=== PATIENT | female | born 1950 | race Caucasian/White ===

== ENCOUNTER → 2024-09-23 | Outpatient (REF) | payer MEDICARE ==
[~2024-09-23] MED LIST: PERC5TAB12 PO
== END ==
LOC: M SFHCWAGY 12:52
PROVIDERS: ATTEND Specialist
DX: N39.0 Urinary tract infection, site not specified (principal); C55 Malignant neoplasm of uterus, part unspecified; C52 Malignant neoplasm of vagina

== ENCOUNTER → 2024-11-18 | Outpatient (REF) | payer MEDICARE ==
[2024-11-18 15:12] LABS: APPEARANCE, URINE CLOUDY (CLEAR); BACTERIA, URINE AUTO 1+ (NEGATIVE); BILIRUBIN, URINE AUTO NEGATIVE (NEGATIVE); BLOOD, URINE BLOOD 3+ (NEGATIVE); COLOR, URINE AMBER (YELLOW); GLUCOSE, URINE (UA) AUTO NEGATIVE (NEGATIVE); KETONE, URINE AUTO NEGATIVE (NEGATIVE); LEUKOCYTE ESTERASE, URINE AUTO TRACE (NEGATIVE); MUCUS, URINE SMALL (NEGATIVE); NITRITE, URINE AUTO NEGATIVE (NEGATIVE); PROTEIN, URINE AUTO 2+ mg/dL (NEGATIVE); RBC, URINE AUTO TNTC /HPF (0-3); SPECIFIC GRAVITY URINE AUTO 1.005 (1.002-1.035); SQUAMOUS EPITHELIAL CELL UR AU 0 /HPF (0-6); UROBILINOGEN, URINE AUTO 0.2 mg/dL (0.0-2.0); WBC, URINE AUTO 13 /HPF (0-3)
== END ==
LOC: M SFHCWAGY 14:42
PROVIDERS: ATTEND Specialist
DX: R30.0 Dysuria (principal)

== ENCOUNTER → 2024-11-27 | Outpatient (REF) | payer MEDICARE | LOC: M SFHCWAGY 09:59 | PROVIDERS: ATTEND Specialist | DX: N39.0 Urinary tract infection, site not specified (principal) ==

== ENCOUNTER → 2024-12-08 | Outpatient (CLI) | payer MEDICARE | LOC: M ONCR 09:58 | PROVIDERS: ATTEND General Practice | DX: C54.1 Malignant neoplasm of endometrium (principal); Z90.710 Acquired absence of both cervix and uterus; Z90.722 Acquired absence of ovaries, bilateral; Z90.79 Acquired absence of other genital organ(s); Z87.891 Personal history of nicotine dependence ==

== ENCOUNTER → 2024-12-15 | Outpatient (CLI) | payer MEDICARE | LOC: M PLARAD 09:39 | PROVIDERS: ATTEND General Practice | DX: C54.1 Malignant neoplasm of endometrium (principal) | CPT/HCPCS: 78815; A9552 ==

== ENCOUNTER → 2024-12-19 | Outpatient (REF) | payer MEDICARE ==
[~2024-12-19] MED LIST changes: +BACTDSTA; +BACTDSTA PO
== END ==
LOC: M SFHCWAGY 16:48
PROVIDERS: ATTEND Specialist
DX: N39.0 Urinary tract infection, site not specified (principal)

== ENCOUNTER → 2025-02-20 | Outpatient (CLI) | payer MEDICARE ==
[~2025-02-20] MED LIST changes: +CYCL1CAP2 PO
== END ==
LOC: M ONCR 15:24
PROVIDERS: ATTEND General Practice
DX: C54.1 Malignant neoplasm of endometrium (principal); Z92.3 Personal history of irradiation

== ENCOUNTER → 2025-03-19 | Outpatient (CLI) | payer MEDICARE | LOC: M ONCR 11:39 | PROVIDERS: ATTEND General Practice | DX: M54.31 Sciatica, right side (principal); M54.32 Sciatica, left side; K59.09 Other constipation ==

== ENCOUNTER → 2025-05-26 | Outpatient (CLI) | payer MEDICARE ==
[~2025-05-26] MED LIST changes: +LACT10SO94 PO
== END ==
LOC: M ONCR 11:31
PROVIDERS: ATTEND General Practice
DX: C54.1 Malignant neoplasm of endometrium (principal); Z92.3 Personal history of irradiation; Z92.21 Personal history of antineoplastic chemotherapy; Z87.891 Personal history of nicotine dependence; Z79.899 Other long term (current) drug therapy

== ENCOUNTER 2025-07-17 15:04 | Inpatient (IN) | payer MEDICARE ==
[~2025-07-17] VITALS: Ht 165.1 cm; Wt 65.9 kg
[~2025-07-17 15:04] MED LIST changes: -BACTDSTA; -BACTDSTA PO; +DICY-61 PO; +LORA1TAB23 PO; +MORP1SOL PO; +MORP1SOL5 PO; +SIME80CH5 PO; +SULF-8; +SULF-8 PO; +TRAN1DIS4 TOP
[2025-07-17 17:39] LABS: PLATELET COUNT, AUTOMATED 362 10^3/uL (150-450)
[2025-07-17 17:50] LABS: ALT/SGPT 29.0 U/L (7.0-40); AST/SGOT 38.0 U/L (<34); CALCIUM LEVEL 8.1 MG/DL (8.3-10.6); CARBON DIOXIDE LEVEL 19.0 MMOL/L (20-31); CHLORIDE LEVEL 95.0 MMOL/L (98-107); CREATININE FOR GFR 1.91 MG/DL (0.55-1.30); GLOMERULAR FILTRATION RATE 27.2 (>39); POTASSIUM SERUM 5.1 MMOL/L (3.5-5.1); SODIUM LEVEL 130.0 MMOL/L (136-145)
[2025-07-17 18:13] LABS: LYMPHOCYTES 4 % (16-44); METAMYELOCYTES 1 % (0-0); NEUTROPHILS 87 % (28-66)
[2025-07-17] MEDS: NS (Normal Saline) 0.9% 1,000 ML IV ONE (18:35)
[2025-07-17 18:39] LABS: PLATELET ESTIMATE NORMAL (NORMAL)
[2025-07-17] MEDS ORDERED: MORPHINE 2 MG/ML 1 ML VIAL IV PRN (18:45)
[2025-07-17] MEDS ORDERED: ACETAMINOPHEN 325 MG TAB PO PRN (18:45)
[2025-07-17] MEDS ORDERED: HOME MED LIST COMPLETE! XX SCH (19:30)
[2025-07-17] MEDS: LevoFLOXacin IV 750 MG in IV 1 EA IV ONE (20:14)
[2025-07-17] MEDS: NS (Normal Saline) 0.9% 1,000 ML IV SCH (20:25)
[2025-07-17] MEDS: SCOPOLAMINE 1MG TRANSDERMAL PATCH TOP SCH (21:00)
[2025-07-17] MEDS: ONDANSETRON 4MG/2ML VIAL IV PRN (21:26)
[2025-07-17] MEDS: MORPHINE 2 MG/ML 1 ML VIAL IV PRN (21:29)
[2025-07-17] MEDS: HEPARIN SOD 5000 UNITS/ML 1 ML VIAL/SYRINGE SC SCH (21:31)
[2025-07-17 22:45] VITALS: BP 115/69; TEMP 97.2; O2SAT 95
[2025-07-18] MEDS: DICYCLOMINE 10 MG CAP PO SCH (00:29)
[2025-07-18] MEDS: SIMETHICONE 80MG CHEW TAB PO SCH (01:26)
[2025-07-18 04:00] VITALS: TEMP 97.3; O2SAT 92
[2025-07-18 06:19] VITALS: BP 135/81; TEMP 97.9; O2SAT 92
[2025-07-18] MEDS ORDERED: BISACODYL 10 MG SUPP PR PRN (08:05)
[2025-07-18] MEDS: MORPHINE SULF IN 0.9% NACL 100 MG in IV 1 EA IV SCH ×2 (08:53→13:16)
[2025-07-18] MEDS: MORPHINE 10 MG/0.5 ML ORAL CONCENTRATE SOLUTION U/D SL PRN (09:50)
[2025-07-21 16:12] LABS: LYME TOTAL ANTIBODY CIA 4.7 Index (<=0.90)
[2025-07-21 20:02] LABS: LYME AB IGG BY CIA 8.25 Index (<=0.90); LYME AB IGM BY CIA 1.92 Index (<=0.90)
== END 2025-07-19 05:57 | disposition expired | DRG 951 ==
LOC: M ED 15:04 → M ED INP 15:05 → M MS4PR 23:00 → M MS5PR 07-18 06:05 → OBSVTOIN 07-18 21:18
PROVIDERS: ADMIT Student in an Organized Health Care Education/Training Program; ATTEND Student in an Organized Health Care Education/Training Program
DX: Z51.5 Encounter for palliative care (principal); K63.1 Perforation of intestine (nontraumatic); K65.1 Peritoneal abscess; N13.30 Unspecified hydronephrosis; A69.20 Lyme disease, unspecified; G89.3 Neoplasm related pain (acute) (chronic); Z66 Do not resuscitate; E86.0 Dehydration; C54.1 Malignant neoplasm of endometrium; Z79.891 Long term (current) use of opiate analgesic; Z79.899 Other long term (current) drug therapy; Z88.1 Allergy status to other antibiotic agents